=== PATIENT | female | born 1960 | race Hispanic/Latino ===

== ENCOUNTER 2017-07-09 00:59 | Inpatient (IN) | payer MEDICAID ==
[~2017-07-09] VITALS: Ht 160 cm; Wt 95.3 kg
[~2017-07-09 00:59] MED LIST: ATOR40TA71 PO; BENZ-51 PO; CARV6.25 PO; ESCI10TA54 PO; ESOM40CA PO; FURO20TA4 PO; LINA1TAB5 PO; LOSA100T29 PO; MOME17N NASAL; OSEL75 PO; PSEU1CAP PO; SUCR1TAB PO
[2017-07-09] MEDS ORDERED: IPRATROPIUM/ALBUTEROL SULFATE 3 ML SOLUTION IH ONE ×2 (01:19→04:09)
[2017-07-09] MEDS ORDERED: METHYLPREDNISOLONE SOD SUCC 125MG/2ML VIAL ONE (01:55)
[2017-07-09] MEDS ORDERED: ONDANSETRON HCL 4 MG/2 ML VIAL ONE ×2 (01:55→04:10)
[2017-07-09 02:04] LABS: BASOPHILS % (AUTO) 1.6 % (0.0-5.0); EOSINOPHILS % (AUTO) 9.9 % (0.0-8.0); HEMATOCRIT 43.6 % (36-48); LYMPHOCYTES % (AUTO) 27.6 % (21.0-51.0); MEAN CORPUSCULAR HEMOGLOBIN 26.4 pg (27.0-33.0); MEAN CORPUSCULAR HGB CONC 32.9 g/dL (32.0-36.0); MEAN CORPUSCULAR VOLUME 80.3 fL (79-99); MONOCYTES % (AUTO) 7.8 % (3.0-13.0); NEUTROPHILS % (AUTO) 53.1 % (40.0-77.0); NUCLEATED RED BLOOD CELLS 0.1 % (0.0-0.19); PLATELET COUNT (AUTO) 372 K/uL (130-400); RED BLOOD CELL COUNT(AUTO) 5.42 MIL/uL (4.00-5.50); RED CELL DISTRIBUTION WIDTH 14.7 % (11.0-15.5); WHITE BLOOD COUNT (AUTO) 11.8 K/uL (4.8-10.8)
[2017-07-09 02:15] LABS: POTASSIUM 4.2 mmol/L (3.5-5.1)
[2017-07-09 02:29] LABS: ALBUMIN 4.2 g/dL (3.5-5.0); BILIRUBIN,TOTAL 0.7 mg/dL (0.2-1.0); TOTAL PROTEIN, SERUM 8.4 g/dL (6.0-8.3)
[2017-07-09 02:48] LABS: B-TYPE NATRIURETIC PEPTIDE 48 pg/mL (0-100)
[2017-07-09] MEDS ORDERED: ENOXAPARIN SODIUM 100 MG/1 ML SQ ONE (04:17)
[2017-07-09] MEDS ORDERED: ASPIRIN 325 MG TABLET ONE (04:17)
[2017-07-09] MEDS ORDERED: INSULIN HUMULIN R 100 UNIT/ML 3ML ONE ×2 (08:42→12:25)
[2017-07-09 09:14] LABS: CREATINE KINASE MB 1.7 ng/mL (0.5-3.6); TROPONIN I 0.06 ng/mL (0.00-0.06)
[2017-07-09] MEDS ORDERED: LEVOFLOXACIN 500 MG/D5W 100 ML 100 ML ONE (13:23)
[2017-07-09 14:00] VITALS: BP 138/80
[2017-07-09] MEDS ORDERED: ACETAMINOPHEN 325 MG TAB PO PRN (14:00)
[2017-07-09] MEDS ORDERED: ENOXAPARIN SODIUM 40 MG/0.4 ML SYRINGE SQ SCH (14:00)
[2017-07-09] MEDS ORDERED: DEXTROSE 50%-WATER 50 ML DISP.SYRIN IV PRN (14:00)
[2017-07-09] MEDS ORDERED: ONDANSETRON HCL 4 MG/2 ML VIAL IVP PRN (14:00)
[2017-07-09] MEDS ORDERED: GLUCAGON 1MG KIT 1 MG ML IM PRN (14:00)
[2017-07-09 15:46] LABS: CREATINE KINASE MB 1.8 ng/mL (0.5-3.6); CREATINE KINASE, TOTAL 183 U/L (21-232); MYOGLOBIN 54 ng/mL (10-92); TROPONIN I < 0.04 ng/mL (0.00-0.06)
[2017-07-09] MEDS: PANTOPRAZOLE SODIUM 40 MG TABLET.DR PO SCH (15:52)
[2017-07-09] MEDS: ASPIRIN 81 MG EC TAB PO SCH (15:53)
[2017-07-09] MEDS: FUROSEMIDE 40 MG TABLET PO SCH ×2 (15:53→17:00)
[2017-07-09] MEDS: LOSARTAN 100 MG TABLET PO SCH (15:53)
[2017-07-09] MEDS: CARVEDILOL 6.25 MG TABLET PO SCH ×2 (15:53→21:00)
[2017-07-09] MEDS ORDERED: FURO20TA4 PO (16:58)
[2017-07-09] MEDS ORDERED: FOLI1TAB15 PO (16:58)
[2017-07-09] MEDS ORDERED: MECL-111 PO (16:58)
[2017-07-09] MEDS ORDERED: ASPI-555 PO (16:58)
[2017-07-09] MEDS: INSULIN R PO SS1 SQ SCH ×2 (17:11→21:05)
[2017-07-09] MEDS ORDERED: PNEUMOCOCCAL VACCINE POLYVALENT 0.5 ML/VIAL [PPV] IM SCH (18:00)
[2017-07-09] MEDS ORDERED: FLU VACC QS2017-18 36MOS UP/PF 60 MCG/0.5 ML ML IM NR (18:00)
[2017-07-09 19:00] VITALS: BP 133/69
[2017-07-09] MEDS: IPRATROPIUM/ALBUTEROL SULFATE 3 ML SOLUTION IH PRN (19:51)
[2017-07-10] VITALS (7 sets, daily range): BP systolic 109–146; BP diastolic 58–80
[2017-07-10 04:43] LABS: MEAN CORPUSCULAR HEMOGLOBIN 26.3 pg (27.0-33.0); MEAN CORPUSCULAR HGB CONC 32.8 g/dL (32.0-36.0); MEAN CORPUSCULAR VOLUME 80.3 fL (79-99); PLATELET COUNT (AUTO) 355 K/uL (130-400); RED CELL DISTRIBUTION WIDTH 14.6 % (11.0-15.5); WHITE BLOOD COUNT (AUTO) 15.3 K/uL (4.8-10.8)
[2017-07-10 04:50] LABS: INR 0.92 (0.85-1.15); PARTIAL THROMBOPLASTIN TIME 23.1 SEC (26.3-35.5); PROTHROMBIN TIME 9.7 SEC (9.6-11.6)
[2017-07-10 04:53] LABS: ALBUMIN 3.6 g/dL (3.5-5.0); BILIRUBIN,TOTAL 0.4 mg/dL (0.2-1.0); CREATININE 1.1 mg/dL (0.5-1.5); MAGNESIUM 1.8 mg/dL (1.80-2.40); PHOSPHORUS 4.9 mg/dL (2.5-4.9); POTASSIUM 3.9 mmol/L (3.5-5.1)
[2017-07-10] MEDS: INSULIN R PO SS1 SQ SCH ×4 (06:26→21:26)
[2017-07-10] MEDS: IPRATROPIUM/ALBUTEROL SULFATE 3 ML SOLUTION IH PRN ×2 (07:21→17:18)
[2017-07-10] MEDS: ATORVASTATIN CALCIUM 20 MG TABLET PO SCH (08:50)
[2017-07-10] MEDS: LOSARTAN 100 MG TABLET PO SCH (08:51)
[2017-07-10] MEDS: PANTOPRAZOLE SODIUM 40 MG TABLET.DR PO SCH (08:51)
[2017-07-10] MEDS: CARVEDILOL 6.25 MG TABLET PO SCH ×2 (08:51→21:18)
[2017-07-10] MEDS: FUROSEMIDE 40 MG TABLET PO SCH ×2 (08:52→17:39)
[2017-07-10] MEDS: ASPIRIN 81 MG EC TAB PO SCH (08:52)
[2017-07-10] MEDS: ENOXAPARIN SODIUM 40 MG/0.4 ML SYRINGE SQ SCH (08:53)
[2017-07-10] MEDS: BENZONATATE 100 MG CAPSULE PO SCH ×2 (10:00→17:38)
[2017-07-10] MEDS ORDERED: METHYLPREDNISOLONE SOD SUCC 40MG/ML 1ML ONE (21:14)
[2017-07-10] MEDS ORDERED: LEVOFLOXACIN 500 MG/D5W 100 ML 100 ML ONE (21:14)
[2017-07-10] MEDS ORDERED: LEVOFLOXACIN 500 MG/D5W 100 ML 100 ML IV SCH (22:00)
[2017-07-10] MEDS ORDERED: METHYLPREDNISOLONE SOD SUCC 40MG/ML 1ML IVP SCH (22:00)
[2017-07-11] MEDS: BENZONATATE 100 MG CAPSULE PO SCH ×3 (01:58→16:40)
[2017-07-11 03:25] VITALS: BP 144/56
[2017-07-11] MEDS: INSULIN R PO SS1 SQ SCH ×3 (06:17→16:30)
[2017-07-11 07:30] VITALS: BP 139/63
[2017-07-11] MEDS: ENOXAPARIN SODIUM 40 MG/0.4 ML SYRINGE SQ SCH (09:32)
[2017-07-11] MEDS: ATORVASTATIN CALCIUM 20 MG TABLET PO SCH (09:35)
[2017-07-11] MEDS: FUROSEMIDE 40 MG TABLET PO SCH ×2 (09:35→16:39)
[2017-07-11] MEDS: ASPIRIN 81 MG EC TAB PO SCH (09:36)
[2017-07-11] MEDS: LOSARTAN 100 MG TABLET PO SCH (09:36)
[2017-07-11] MEDS: PANTOPRAZOLE SODIUM 40 MG TABLET.DR PO SCH (09:36)
[2017-07-11] MEDS: CARVEDILOL 6.25 MG TABLET PO SCH (09:37)
[2017-07-11 11:00] VITALS: BP 138/78
[2017-07-11 16:00] VITALS: BP 152/84
[2017-07-11] MEDS ORDERED: ATORVASTATIN CALCIUM 20 MG TABLET PO SCH (21:00)
== END 2017-07-11 18:30 | disposition home or self-care (01) | DRG 145 ==
LOC: EDH 00:59 → EDHIP 01:00 → 3CH 13:15
PROVIDERS: ADMIT Internal Medicine Infectious Disease; ATTEND Internal Medicine Infectious Disease
PROC: 3E0234Z Introduction of Serum, Toxoid and Vaccine into Muscle, Percutaneous Approach (ICD-10-PCS; principal; 2017-07-11)
PROC: 3E0234Z Introduction of Serum, Toxoid and Vaccine into Muscle, Percutaneous Approach (ICD-10-PCS; 2017-07-11)
DX: J20.9 Acute bronchitis, unspecified (principal); D72.1 Eosinophilia; I50.32 Chronic diastolic (congestive) heart failure; I11.0 Hypertensive heart disease with heart failure; E11.9 Type 2 diabetes mellitus without complications; N19 Unspecified kidney failure; J45.909 Unspecified asthma, uncomplicated; R74.8 Abnormal levels of other serum enzymes; E78.5 Hyperlipidemia, unspecified; E66.9 Obesity, unspecified; I25.10 Atherosclerotic heart disease of native coronary artery without angina pectoris; Z23 Encounter for immunization; Z68.37 Body mass index [BMI] 37.0-37.9, adult; Z88.6 Allergy status to analgesic agent; Z88.1 Allergy status to other antibiotic agents; Z98.51 Tubal ligation status; Z90.49 Acquired absence of other specified parts of digestive tract
CPT/HCPCS: 36415; 71046; 71250; 80053; 82550; 82553; 82948; 83735; 83874; 83880; 84100; 84484; 85025; 85027; 85610; 85730; 87071; 87205; 90732; 93005; 94640; 94664; G0008; G0009; J1650; J1815; J1956; J2405; J2920; J2930; Q2038

== ENCOUNTER 2017-10-07 14:33 | Emergency (ER) | payer MEDICAID, OTHER ==
[~2017-10-07 14:33] MED LIST changes: +ASPI-555 PO; -BENZ-51 PO; +FOLI1TAB15 PO; +MECL-111 PO; -MOME17N NASAL; -OSEL75 PO; -PSEU1CAP PO
[2017-10-07] MEDS ORDERED: LIDOCAINE HCL 2% VISCOUS 15 ML UDCUP ONE (15:40)
== END 2017-10-07 16:15 | disposition home or self-care (01) ==
LOC: EDH 14:33
DX: S01.522A Laceration with foreign body of oral cavity, initial encounter (principal); I25.10 Atherosclerotic heart disease of native coronary artery without angina pectoris; E11.9 Type 2 diabetes mellitus without complications; E78.5 Hyperlipidemia, unspecified; I10 Essential (primary) hypertension; Z88.6 Allergy status to analgesic agent; Z88.8 Allergy status to other drugs, medicaments and biological substances; X58.XXXA Exposure to other specified factors, initial encounter; Y93.89 Activity, other specified; Y92.511 Restaurant or cafe as the place of occurrence of the external cause; Y99.8 Other external cause status
CPT/HCPCS: 70360; 74018

== ENCOUNTER → 2018-02-27 | Outpatient (CLI) | payer MEDICAID ==
[~2018-02-27] VITALS: Ht 157.5 cm; Wt 96.2 kg
[~2018-02-27] MED LIST changes: +CETI5TAB12 PO; +FENO48TA4 PO; +LOSA100T20 PO; -LOSA100T29 PO; +REGADENOSON 0.4 MG/5 ML PF SYG IVP SCH; +TRAM50TA4 PO
== END | disposition home or self-care (01) ==
LOC: SHCH 14:19
PROVIDERS: ATTEND Internal Medicine Cardiovascular Disease
DX: I20.8 Other forms of angina pectoris (principal); I25.9 Chronic ischemic heart disease, unspecified; I13.0 Hypertensive heart and chronic kidney disease with heart failure and stage 1 through stage 4 chronic kidney disease, or unspecified chronic kidney disease; E11.22 Type 2 diabetes mellitus with diabetic chronic kidney disease; N18.9 Chronic kidney disease, unspecified; I50.32 Chronic diastolic (congestive) heart failure; E78.5 Hyperlipidemia, unspecified; J45.909 Unspecified asthma, uncomplicated; Z87.891 Personal history of nicotine dependence; Z90.49 Acquired absence of other specified parts of digestive tract; Z90.710 Acquired absence of both cervix and uterus
CPT/HCPCS: 78452; 93017; 96374; A9500 ×2; J2785

== ENCOUNTER 2018-09-30 | Emergency (ER) | payer MEDICAID ==
[~2018-09-30] MED LIST changes: -LOSA100T20 PO; +LOSA100T58 PO; -REGADENOSON 0.4 MG/5 ML PF SYG IVP SCH
[2018-09-30 00:29] LABS: BASOPHILS % (AUTO) 1.2 % (0.0-5.0); EOSINOPHILS % (AUTO) 4.5 % (0.0-8.0); HEMATOCRIT 43.1 % (36-48); LYMPHOCYTES % (AUTO) 18.9 % (21.0-51.0); MEAN CORPUSCULAR HEMOGLOBIN 26.7 pg (27.0-33.0); MEAN CORPUSCULAR VOLUME 80.9 fL (79-99); MONOCYTES % (AUTO) 6.7 % (3.0-13.0); NEUTROPHILS % (AUTO) 68.7 % (40.0-77.0); PLATELET COUNT (AUTO) 356 K/uL (130-400); RED BLOOD CELL COUNT(AUTO) 5.33 MIL/uL (4.00-5.50); RED CELL DISTRIBUTION WIDTH 15.1 % (11.0-15.5); WHITE BLOOD COUNT (AUTO) 13.9 K/uL (4.8-10.8)
[2018-09-30 00:38] LABS: CREATININE 1.1 mg/dL (0.5-1.5); POTASSIUM 3.7 mmol/L (3.5-5.1)
[2018-09-30 00:42] LABS: BILIRUBIN,TOTAL 0.5 mg/dL (0.2-1.0); TOTAL PROTEIN, SERUM 7.5 g/dL (6.0-8.3)
[2018-09-30] MEDS ORDERED: KETOROLAC TROMETHAMINE 30MG/ML ONE (00:45)
[2018-09-30] MEDS ORDERED: ORPHENADRINE CITRATE 30 MG/ML ML ONE (02:25)
[2018-09-30] MEDS ORDERED: LIDOCAINE 5% TOPICAL PATCH TP ONE (02:25)
== END 2018-09-30 02:40 | disposition home or self-care (01) ==
LOC: EDH
DX: M54.5 Low back pain (principal); M79.604 Pain in right leg; M62.838 Other muscle spasm; I11.0 Hypertensive heart disease with heart failure; I50.9 Heart failure, unspecified; I25.10 Atherosclerotic heart disease of native coronary artery without angina pectoris; E11.9 Type 2 diabetes mellitus without complications; E78.5 Hyperlipidemia, unspecified; K21.9 Gastro-esophageal reflux disease without esophagitis; Z90.89 Acquired absence of other organs; Z90.49 Acquired absence of other specified parts of digestive tract; Z98.51 Tubal ligation status; Z98.890 Other specified postprocedural states
CPT/HCPCS: 36415; 72100; 80053; 85025; 93971; 96374; 99285; J1885; J2360

== ENCOUNTER 2018-12-03 21:34 | Emergency (ER) | payer MEDICAID ==
[2018-12-03 22:47] LABS: BASOPHILS % (AUTO) 1.3 % (0.0-5.0); EOSINOPHILS % (AUTO) 4.8 % (0.0-8.0); HEMATOCRIT 43.2 % (36-48); LYMPHOCYTES % (AUTO) 27.2 % (21.0-51.0); MEAN CORPUSCULAR HEMOGLOBIN 27.9 pg (27.0-33.0); MEAN CORPUSCULAR HGB CONC 33.9 g/dL (32.0-36.0); MEAN CORPUSCULAR VOLUME 82.4 fL (79-99); MONOCYTES % (AUTO) 8.4 % (3.0-13.0); NEUTROPHILS % (AUTO) 58.3 % (40.0-77.0); NUCLEATED RED BLOOD CELLS 0.1 % (0.0-0.19); PLATELET COUNT (AUTO) 350 K/uL (130-400); RED BLOOD CELL COUNT(AUTO) 5.25 MIL/uL (4.00-5.50); RED CELL DISTRIBUTION WIDTH 14.5 % (11.0-15.5); WHITE BLOOD COUNT (AUTO) 9.7 K/uL (4.8-10.8)
[2018-12-03 22:56] LABS: CREATININE 1.2 mg/dL (0.5-1.5); POTASSIUM 4.1 mmol/L (3.5-5.1)
[2018-12-03 23:01] LABS: ALBUMIN 4.3 g/dL (3.5-5.0); BILIRUBIN,TOTAL 0.9 mg/dL (0.2-1.0); TOTAL PROTEIN, SERUM 7.7 g/dL (6.0-8.3)
[2018-12-03] MEDS ORDERED: LIDOCAINE 5% TOPICAL PATCH TP ONE (23:54)
[2018-12-03] MEDS ORDERED: KETOROLAC TROMETHAMINE 30MG/ML ONE (23:54)
== END 2018-12-04 00:16 | disposition home or self-care (01) ==
LOC: EDH 21:34
DX: M54.41 Lumbago with sciatica, right side (principal); M54.42 Lumbago with sciatica, left side; R19.7 Diarrhea, unspecified; I11.0 Hypertensive heart disease with heart failure; I50.9 Heart failure, unspecified; E11.9 Type 2 diabetes mellitus without complications; E78.5 Hyperlipidemia, unspecified; I25.10 Atherosclerotic heart disease of native coronary artery without angina pectoris; K21.9 Gastro-esophageal reflux disease without esophagitis; Z90.49 Acquired absence of other specified parts of digestive tract; Z90.710 Acquired absence of both cervix and uterus; Z98.890 Other specified postprocedural states; Z88.6 Allergy status to analgesic agent; Z88.8 Allergy status to other drugs, medicaments and biological substances
CPT/HCPCS: 36415; 72100; 80053; 85025; 96372; 99285; J1885

== ENCOUNTER → 2019-01-05 | Outpatient (CLI) | payer MEDICAID | END | disposition home or self-care (01) | LOC: SHCH 08:56 | PROVIDERS: ATTEND Internal Medicine Cardiovascular Disease | DX: I11.0 Hypertensive heart disease with heart failure (principal); I50.32 Chronic diastolic (congestive) heart failure; I25.10 Atherosclerotic heart disease of native coronary artery without angina pectoris | CPT/HCPCS: 93306 ==

== ENCOUNTER 2019-03-25 17:39 | Emergency (ER) | payer MEDICAID ==
[~2019-03-25 17:39] MED LIST changes: +FENO48TA16 PO; -FENO48TA4 PO
[2019-03-25] MEDS ORDERED: DIPHENHYDRAMINE HCL 25 MG CAPSULE ONE (18:23)
[2019-03-25] MEDS ORDERED: FAMOTIDINE 20MG TAB 20 MG TAB ONE (19:29)
[2019-03-25] MEDS ORDERED: PREDNISONE 20 MG TABLET ONE (19:29)
== END 2019-03-25 20:40 | disposition home or self-care (01) ==
LOC: EDH 17:39
DX: L50.0 Allergic urticaria (principal); R19.7 Diarrhea, unspecified; I11.0 Hypertensive heart disease with heart failure; I50.9 Heart failure, unspecified; I25.10 Atherosclerotic heart disease of native coronary artery without angina pectoris; K21.9 Gastro-esophageal reflux disease without esophagitis; E78.5 Hyperlipidemia, unspecified; E11.9 Type 2 diabetes mellitus without complications; Z90.710 Acquired absence of both cervix and uterus; Z98.890 Other specified postprocedural states; Z88.6 Allergy status to analgesic agent; Z87.891 Personal history of nicotine dependence
CPT/HCPCS: 99284; Q0163

== ENCOUNTER 2019-04-24 22:10 | Emergency (ER) | payer MEDICAID ==
[2019-04-24] MEDS ORDERED: MECLIZINE HCL 25 MG TABLET ONE (22:41)
[2019-04-24] MEDS ORDERED: ONDANSETRON ODT 4 MG TAB ONE (22:41)
[2019-04-24 22:58] LABS: BASOPHILS % (AUTO) 1.1 % (0.0-5.0); HEMATOCRIT 45.3 % (36-48); LYMPHOCYTES % (AUTO) 33.3 % (21.0-51.0); MEAN CORPUSCULAR HEMOGLOBIN 26.9 pg (27.0-33.0); MEAN CORPUSCULAR HGB CONC 32.7 g/dL (32.0-36.0); MEAN CORPUSCULAR VOLUME 82.2 fL (79-99); NEUTROPHILS % (AUTO) 53.6 % (40.0-77.0); PLATELET COUNT (AUTO) 350 K/uL (130-400); RED BLOOD CELL COUNT(AUTO) 5.51 MIL/uL (4.00-5.50); RED CELL DISTRIBUTION WIDTH 14.8 % (11.0-15.5); WHITE BLOOD COUNT (AUTO) 11.5 K/uL (4.8-10.8)
[2019-04-24 23:08] LABS: CREATININE 0.9 mg/dL (0.5-1.5); POTASSIUM 3.5 mmol/L (3.5-5.1)
[2019-04-24 23:12] LABS: ALBUMIN 3.8 g/dL (3.5-5.0); BILIRUBIN,TOTAL 0.4 mg/dL (0.2-1.0); TOTAL PROTEIN, SERUM 7.5 g/dL (6.0-8.3)
[2019-04-24] MEDS ORDERED: SODIUM CHLORIDE 0.9% 1000ML 1,000 ML IV ONE (23:36)
[2019-04-24] MEDS ORDERED: LORAZEPAM 2 MG/ML 1 ML VIAL ONE (23:37)
[2019-04-24] MEDS ORDERED: FAMOTIDINE/PF 20 MG/2 ML VIAL IV ONE (23:37)
[2019-04-24 23:53] LABS: APPEARANCE,URINE Clear (CLEAR); BILIRUBIN,URINE Negative (NEGATIVE); COLOR,URINE Yellow (YELLOW); GLUCOSE, URINE (UA) >=1000 mg/dL (NEGATIVE); KETONES,URINE Negative (NEGATIVE); LEUKOCYTE ESTERASE ,URINE Small (NEGATIVE); NITRATE,URINE Negative (NEGATIVE); OCCULT BLOOD,URINE Negative (NEGATIVE); PH,URINE 5.5 (5.0-8.0); PROTEIN,URINE Negative (NEGATIVE)
[2019-04-25 00:03] LABS: BACTERIA,URINE Few /HPF (None Seen); RBC,URINE None Seen /HPF (0-1); SQUAMOUS EPITHELIAL CELL,UR Moderate /HPF (0-2)
[2019-04-25] MEDS ORDERED: CEFTRIAXONE SODIUM 1 GM ONE (00:43)
== END 2019-04-25 01:08 | disposition home or self-care (01) ==
LOC: EDH 22:10
DX: N39.0 Urinary tract infection, site not specified (principal); H81.10 Benign paroxysmal vertigo, unspecified ear; E11.9 Type 2 diabetes mellitus without complications; I11.0 Hypertensive heart disease with heart failure; I50.9 Heart failure, unspecified; I25.10 Atherosclerotic heart disease of native coronary artery without angina pectoris; K21.9 Gastro-esophageal reflux disease without esophagitis; E78.5 Hyperlipidemia, unspecified; Z87.891 Personal history of nicotine dependence; Z88.5 Allergy status to narcotic agent; Z88.8 Allergy status to other drugs, medicaments and biological substances
CPT/HCPCS: 36415; 80053; 81001; 83690; 84478; 85025; 96361; 96374; 96375 ×2; 99284; J0696; J2060; J3490; J7030

== ENCOUNTER 2019-08-07 17:11 | Emergency (ER) | payer MEDICAID ==
[~2019-08-07 17:11] MED LIST changes: -FENO48TA16 PO; +FENO48TA9 PO; -MECL-111 PO; +MECL-160 PO
[2019-08-07 18:05] LABS: BASOPHILS % (AUTO) 0.7 % (0.0-5.0); EOSINOPHILS % (AUTO) 4.4 % (0.0-8.0); HEMATOCRIT 41.1 % (36-48); LYMPHOCYTES % (AUTO) 25.1 % (21.0-51.0); MEAN CORPUSCULAR HEMOGLOBIN 26.9 pg (27.0-33.0); MEAN CORPUSCULAR HGB CONC 32.8 g/dL (32.0-36.0); MONOCYTES % (AUTO) 8.1 % (3.0-13.0); NEUTROPHILS % (AUTO) 61.3 % (40.0-77.0); PLATELET COUNT (AUTO) 385 K/uL (130-400); RED BLOOD CELL COUNT(AUTO) 5.01 MIL/uL (4.00-5.50); WHITE BLOOD COUNT (AUTO) 11.2 K/uL (4.8-10.8)
[2019-08-07 18:18] LABS: CREATININE 1.1 mg/dL (0.5-1.5); POTASSIUM 3.5 mmol/L (3.5-5.1)
[2019-08-07 18:20] LABS: INR 0.94 (0.85-1.15); PARTIAL THROMBOPLASTIN TIME 23.6 SEC (26.3-35.5); PROTHROMBIN TIME 9.9 SEC (9.6-11.6)
[2019-08-07 18:25] LABS: ALBUMIN 3.8 g/dL (3.5-5.0); BILIRUBIN,TOTAL 0.5 mg/dL (0.2-1.0); TOTAL PROTEIN, SERUM 7.3 g/dL (6.0-8.3)
[2019-08-07 19:16] LABS: APPEARANCE,URINE Clear (CLEAR); BILIRUBIN,URINE Negative (NEGATIVE); COLOR,URINE Yellow (YELLOW); GLUCOSE, URINE (UA) >=1000 mg/dL (NEGATIVE); KETONES,URINE Negative (NEGATIVE); LEUKOCYTE ESTERASE ,URINE Negative (NEGATIVE); NITRATE,URINE Negative (NEGATIVE); OCCULT BLOOD,URINE Negative (NEGATIVE); PROTEIN,URINE Negative (NEGATIVE)
[2019-08-07 19:33] LABS: BACTERIA,URINE Few /HPF (None Seen); RBC,URINE None Seen /HPF (0-1); SQUAMOUS EPITHELIAL CELL,UR 0-2 /HPF (0-2); WBC,URINE 0-1 /HPF (0-1)
[2019-08-07] MEDS ORDERED: TRAMADOL HCL 50 MG TABLET ONE (21:07)
== END 2019-08-07 21:13 | disposition home or self-care (01) ==
LOC: EDH 17:11
DX: R10.9 Unspecified abdominal pain (principal); E11.65 Type 2 diabetes mellitus with hyperglycemia; I25.10 Atherosclerotic heart disease of native coronary artery without angina pectoris; I11.0 Hypertensive heart disease with heart failure; I50.9 Heart failure, unspecified; E78.5 Hyperlipidemia, unspecified; K21.9 Gastro-esophageal reflux disease without esophagitis; Z90.49 Acquired absence of other specified parts of digestive tract; Z90.710 Acquired absence of both cervix and uterus; Z88.6 Allergy status to analgesic agent
CPT/HCPCS: 36415; 71045; 74176; 80053; 81001; 82150; 82550; 83690; 85025; 85610; 85730; 93005

== ENCOUNTER 2021-04-21 05:56 | Day surgery (SDC) | payer MEDICAID ==
[2021-04-17 14:36] LABS: BASOPHILS % (AUTO) 1.2 % (0.0-5.0); HEMATOCRIT 45.4 % (36-48); LYMPHOCYTES % (AUTO) 28.6 % (21.0-51.0); MEAN CORPUSCULAR HEMOGLOBIN 26.9 pg (27.0-33.0); MEAN CORPUSCULAR HGB CONC 32.2 g/dL (32.0-36.0); MEAN CORPUSCULAR VOLUME 83.8 fL (79-99); MONOCYTES % (AUTO) 8.3 % (3.0-13.0); NEUTROPHILS % (AUTO) 55.6 % (40.0-77.0); PLATELET COUNT (AUTO) 372 K/uL (130-400); RED BLOOD CELL COUNT(AUTO) 5.42 MIL/uL (4.00-5.50); RED CELL DISTRIBUTION WIDTH 14.1 % (11.0-15.5); WHITE BLOOD COUNT (AUTO) 7.7 K/uL (4.8-10.8)
[2021-04-17 14:44] LABS: POTASSIUM 3.5 mmol/L (3.5-5.1)
[2021-04-17 14:47] LABS: INR 1.01 (0.85-1.15)
[2021-04-17 14:48] LABS: PARTIAL THROMBOPLASTIN TIME 24.8 SEC (26.3-35.5)
[~2021-04-21] VITALS: Ht 160 cm; Wt 90.7 kg
[2021-04-21] VITALS (10 sets, daily range): BP systolic 124–154; BP diastolic 69–89
[~2021-04-21 05:56] MED LIST changes: -ASPI-555 PO; +ASPI-556 PO; +ATOR40TA69 PO; -ATOR40TA71 PO; +CARV12.511 PO; -CARV6.25 PO; +DULA1.5P SQ; +EMPA1TAB7 PO; +ESCI-8 PO; -ESCI10TA54 PO; -ESOM40CA PO; -FENO48TA9 PO; -FOLI1TAB15 PO; +GABA-529 PO; +ICOS1CAP PO; -LINA1TAB5 PO; -MECL-160 PO; +OMEP20CA12 PO; -SUCR1TAB PO; -TRAM50TA4 PO
[2021-04-21] MEDS ORDERED: 0.9%NACL 1000ML 1,000 ML IV ONE (06:15)
[2021-04-21] MEDS ORDERED: IOHEXOL 350 MG/ML 100ML INFUS..BTL IV ONE (07:07)
[2021-04-21] MEDS ORDERED: NITROGLYCERIN 50MG VIAL IV ONE (07:07)
[2021-04-21] MEDS ORDERED: IOHEXOL-350 50ML VIAL IV ONE (07:07)
[2021-04-21] MEDS ORDERED: LIDOCAINE HCL 400MG/20ML VIAL ONE (07:08)
[2021-04-21] MEDS ORDERED: GLUCAGON 1MG KIT 1 MG ML IM PRN (08:00)
[2021-04-21] MEDS ORDERED: DEXTROSE 50%-WATER 50 ML DISP.SYRIN IV PRN (08:00)
== END 2021-04-21 13:15 | disposition home or self-care (01) ==
LOC: DAH 05:56
PROVIDERS: ATTEND Internal Medicine Cardiovascular Disease
DX: R94.39 Abnormal result of other cardiovascular function study (principal); I20.9 Angina pectoris, unspecified; I11.0 Hypertensive heart disease with heart failure; I50.42 Chronic combined systolic (congestive) and diastolic (congestive) heart failure; E11.9 Type 2 diabetes mellitus without complications; E78.5 Hyperlipidemia, unspecified; F32.9 Major depressive disorder, single episode, unspecified; Z98.890 Other specified postprocedural states; Z79.01 Long term (current) use of anticoagulants; Z90.710 Acquired absence of both cervix and uterus; Z90.49 Acquired absence of other specified parts of digestive tract; Z98.51 Tubal ligation status; Z79.899 Other long term (current) drug therapy; Z88.8 Allergy status to other drugs, medicaments and biological substances; Z79.82 Long term (current) use of aspirin; Z88.6 Allergy status to analgesic agent; Z87.891 Personal history of nicotine dependence
CPT/HCPCS: 36415; 71045; 80048; 82948 ×2; 85025; 85610; 85730; 93005; 93458; A4215; A4216; A4221; A4222; A4223 ×3; A4606; A4663; C1760; C1894; J1644; J3490 ×2; J7030; Q9965; Q9967

== ENCOUNTER → 2021-11-18 | Outpatient (CLI) | payer MEDICAID ==
[~2021-11-18] MED LIST changes: +ALEN70TA80 PO; +APIX5TAB PO; -ASPI-556 PO; -CARV12.511 PO; +DILT240T13 PO; -FURO20TA4 PO; +FURO40TA5 PO; -OMEP20CA12 PO
== END | disposition home or self-care (01) ==
LOC: LAB 11:00
PROVIDERS: ATTEND Internal Medicine Cardiovascular Disease
DX: E11.9 Type 2 diabetes mellitus without complications (principal)
CPT/HCPCS: 36415; 80162

== ENCOUNTER 2022-04-07 12:04 | Emergency (ER) | payer MEDICAID ==
[~2022-04-07] VITALS: Ht 160 cm; Wt 81.6 kg
[~2022-04-07 12:04] MED LIST changes: +ACYC400T20 PO; +DIGO125T71 PO; +EMPA1TAB21 PO; +MECL-160 PO; +OMEP40CA21 PO
[2022-04-07] MEDS ORDERED: HYDROMORPHONE 1 MG INJ IVP ONE (12:30)
[2022-04-07] MEDS ORDERED: ONDANSETRON 4MG INJ IVP ONE (12:30)
[2022-04-07 12:31] LABS: BASOPHILS % (AUTO) 0.7 % (0.0-5.0); EOSINOPHILS % (AUTO) 3.1 % (0.0-8.0); HEMATOCRIT 46.9 % (36-48); LYMPHOCYTES % (AUTO) 11.5 % (21.0-51.0); MEAN CORPUSCULAR HEMOGLOBIN 27.3 pg (27.0-33.0); MEAN CORPUSCULAR HGB CONC 32.4 g/dL (32.0-36.0); MEAN CORPUSCULAR VOLUME 84.2 fL (79-99); NEUTROPHILS % (AUTO) 78.2 % (40.0-77.0); PLATELET COUNT (AUTO) 344 K/uL (130-400); RED BLOOD CELL COUNT(AUTO) 5.57 MIL/uL (4.00-5.50); RED CELL DISTRIBUTION WIDTH 14.6 % (11.0-15.5); WHITE BLOOD COUNT (AUTO) 12.1 K/uL (4.8-10.8)
[2022-04-07] MEDS ORDERED: ONDANSETRON 4MG INJ ONE (12:32)
[2022-04-07 12:43] LABS: CREATININE 1.2 mg/dL (0.5-1.5); POTASSIUM 3.3 mmol/L (3.5-5.1)
[2022-04-07 12:55] LABS: ALBUMIN 4.2 g/dL (3.5-5.0); TOTAL PROTEIN, SERUM 8.3 g/dL (6.0-8.3)
[2022-04-07 13:15] LABS: APPEARANCE,URINE CLEAR (CLEAR); BILIRUBIN,URINE NEGATIVE (NEGATIVE); COLOR,URINE YELLOW (YELLOW); GLUCOSE, URINE (UA) TRACE mg/dL (NEGATIVE); KETONES,URINE NEGATIVE (NEGATIVE); LEUKOCYTE ESTERASE ,URINE NEGATIVE Leu/uL (NEGATIVE); NITRATE,URINE NEGATIVE (NEGATIVE); OCCULT BLOOD,URINE NEGATIVE (NEGATIVE); PROTEIN,URINE 200 mg/dL (NEGATIVE)
[2022-04-07 13:25] LABS: BACTERIA,URINE RARE /HPF (None Seen); MUCUS,URINE FEW LPF (None Seen); SQUAMOUS EPITHELIAL CELL,UR RARE /HPF (0-2)
[2022-04-07] MEDS ORDERED: HYDROMORPHONE 1 MG INJ IVP SCH (13:30)
[2022-04-07] MEDS ORDERED: IOHEXOL 350 MG/ML 100ML INFUS..BTL IV ONE (16:17)
[2022-04-07] MEDS ORDERED: ONDA-104 PO (17:05)
[2022-04-07] MEDS ORDERED: OMEP20TA2 PO (17:05)
[2022-04-07 17:09] VITALS: BP 152/78
== END 2022-04-07 17:08 | disposition home or self-care (01) ==
LOC: EDH 12:04
DX: R10.84 Generalized abdominal pain (principal); R11.2 Nausea with vomiting, unspecified; M54.50 Low back pain, unspecified; I11.0 Hypertensive heart disease with heart failure; I50.9 Heart failure, unspecified; K21.9 Gastro-esophageal reflux disease without esophagitis; E11.9 Type 2 diabetes mellitus without complications; Z90.49 Acquired absence of other specified parts of digestive tract; Z90.89 Acquired absence of other organs; Z98.890 Other specified postprocedural states; Z79.899 Other long term (current) drug therapy; Z79.84 Long term (current) use of oral hypoglycemic drugs; Z88.5 Allergy status to narcotic agent; Z88.8 Allergy status to other drugs, medicaments and biological substances
CPT/HCPCS: 99285; 74177; 96374; 71045; 80162; 84484 ×2; 80053; 83880; 83690; 85025; 87088; 81001; 36415; 93005; J2405; Q9967

== ENCOUNTER → 2022-05-03 | Outpatient (CLI) | payer MEDICAID ==
[~2022-05-03] MED LIST changes: +CALDOLOR 800MG+NS 250ML 250 ML IV ONE; +FENTANYL CITRATE PF 50 MCG/1 ML 2ML VIAL ONE; +MIDAZOLAM HCL 1 MG/ML 2ML VIAL ONE; +MORPHINE PF 100MG/10ML AMP IV ONE; +OMEP20TA2 PO; +ONDA-104 PO; +PROPOFOL 10 MG/ML 20ML VIAL IV ONE; +ROCURONIUM 10MG/1ML SYR 10 MG/ML ML ONE
== END | disposition home or self-care (01) ==
LOC: RAH 12:45
PROVIDERS: ATTEND Internal Medicine Cardiovascular Disease
DX: I51.7 Cardiomegaly (principal); I51.9 Heart disease, unspecified
CPT/HCPCS: 93306; J1741; J2250; J2274; J2704; J3010

== ENCOUNTER 2022-06-27 23:24 | Emergency (ER) | payer MEDICAID ==
[~2022-06-27 23:24] MED LIST changes: -CALDOLOR 800MG+NS 250ML 250 ML IV ONE; -FENTANYL CITRATE PF 50 MCG/1 ML 2ML VIAL ONE; -MIDAZOLAM HCL 1 MG/ML 2ML VIAL ONE; -MORPHINE PF 100MG/10ML AMP IV ONE; -PROPOFOL 10 MG/ML 20ML VIAL IV ONE; -ROCURONIUM 10MG/1ML SYR 10 MG/ML ML ONE
[2022-06-27] MEDS ORDERED: EPINEPHRINE 1MG/10ML(1:10,000) 0.1 MG/ML SYG IVP ONE (23:25)
== END 2022-06-28 01:18 ==
LOC: EDH 23:24
DX: I46.9 Cardiac arrest, cause unspecified (principal)
CPT/HCPCS: 99285; 92950; J0171